=== PATIENT | female | born 2000 | race Two or more races ===

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

== ENCOUNTER 2022-09-07 09:42 | Emergency (ER) | payer OTHER ==
[~2022-09-07] VITALS: Ht 165.1 cm; Wt 81.6 kg
== END 2022-09-07 17:14 | disposition home or self-care (01) ==
LOC: EMR PED 09:42
DX: R10.9 Unspecified abdominal pain (principal); M54.9 Dorsalgia, unspecified; H10.30 Unspecified acute conjunctivitis, unspecified eye; Z88.0 Allergy status to penicillin; Z88.6 Allergy status to analgesic agent; N83.8 Other noninflammatory disorders of ovary, fallopian tube and broad ligament

== ENCOUNTER 2023-03-07 13:20 | Emergency (ER) | payer OTHER ==
[~2023-03-07] VITALS: Ht 165.1 cm; Wt 90.7 kg
[2023-03-07] MEDS ORDERED: CORTISONE60 GM TOP (16:00)
[2023-03-07] MEDS ORDERED: CLEOCIN HCL300 MG PO (16:00)
== END 2023-03-07 16:04 | disposition home or self-care (01) ==
LOC: ER 13:20
DX: L73.8 Other specified follicular disorders (principal); Z88.0 Allergy status to penicillin; Z88.6 Allergy status to analgesic agent

== ENCOUNTER 2023-06-22 10:00 | Emergency (ER) | payer OTHER ==
[~2023-06-22] VITALS: Ht 165.1 cm; Wt 86.2 kg
[~2023-06-22 10:00] MED LIST: CLEOCIN HCL300 MG PO; CORTISONE60 GM TOP
[2023-06-22 12:06] LABS: HEMATOCRIT 36.7 % (36.0-45.00); HEMOGLOBIN 12.5 g/dL (12.0-15.00); MEAN CELL VOLUME 79.3 fL (80.00-100.00); PLATELET COUNT 293 K/uL (150-450); RED BLOOD COUNT 4.63 M/uL (4.00-6.00); RED CELL DISTRIBUTION WIDTH 14.9 % (11.5-14.5)
[2023-06-22 12:37] LABS: CALCIUM 9.2 mg/dL (8.5-10.1); CREATININE SERUM 0.73 mg/dL (0.55-1.02); GFR 100.64; POTASSIUM 3.75 mEq/L (3.5-5.1)
[2023-06-22 13:55] LABS: PH,URINE 5.5 (5.0-8.0); URINE APPEARANCE Clear; URINE BILIRRUBIN Negative (NEGATIVE); URINE BLOOD Negative; URINE COLOR Yellow; URINE GLUCOSE Negative (NEGATIVE); URINE LEUKOCYTE Negative; URINE NITRATE Negative; URINE PROTEIN Negative (NEGATIVE); URINE UROBILINOGEN 0.2 E.U./dl
[2023-06-22 14:02] LABS: URINE EPITHELIAL CELLS 22.4 uL (0.0-38.8); URINE RBC 9.3 uL (0.0-20.8); URINE WBC 5.5 uL (0.0-23.2)
== END 2023-06-22 15:31 | disposition home or self-care (01) ==
LOC: ER 10:01
PROVIDERS: General Practice
DX: N39.0 Urinary tract infection, site not specified (principal); R11.10 Vomiting, unspecified; Z88.0 Allergy status to penicillin; Z88.6 Allergy status to analgesic agent; Z20.822 Contact with and (suspected) exposure to COVID-19

== ENCOUNTER 2023-10-15 14:25 | Emergency (ER) | payer OTHER ==
[~2023-10-15] VITALS: Ht 165.1 cm; Wt 86.2 kg
== END 2023-10-15 18:10 | disposition home or self-care (01) ==
LOC: ER 14:25
DX: S90.02XA Contusion of left ankle, initial encounter (principal); S80.02XA Contusion of left knee, initial encounter; V00.131A Fall from skateboard, initial encounter; Y93.89 Activity, other specified; Y92.89 Other specified places as the place of occurrence of the external cause; Y99.9 Unspecified external cause status; Z88.6 Allergy status to analgesic agent; Z88.0 Allergy status to penicillin

== ENCOUNTER 2024-04-02 20:33 | Emergency (ER) | payer OTHER ==
[~2024-04-02] VITALS: Ht 165.1 cm; Wt 88.5 kg
[2024-04-02] MEDS ORDERED: METHYLPREDNISOLONE SOD SUCC 125 MG VIAL IV ONE (22:15)
[2024-04-02] MEDS ORDERED: ORPHENADRINE CITRATE 30 MG/ML AMPUL IM ONE (22:15)
[2024-04-02 23:08] LABS: HEMATOCRIT 38.5 % (36.0-45.00); HEMOGLOBIN 12.8 g/dL (12.0-15.00); MEAN CELL VOLUME 81.2 fL (80.00-100.00); MEAN CORPUSCULAR HEMOGLOBIN 26.9 pg (27.00-32.0); MEAN CORPUSCULAR HGB CONC 33.2 g/dl (32.0-36.0); PLATELET COUNT 328 K/uL (150-450); RED BLOOD COUNT 4.74 M/uL (4.00-6.00); RED CELL DISTRIBUTION WIDTH 14.6 % (11.5-14.5)
[2024-04-02 23:31] LABS: ALBUMIN 3.9 gm/dL (3.4-5.0); BILIRUBIN TOTAL 0.19 mg/dL (0.3-1.2); CALCIUM 9.7 mg/dL (8.5-10.1); CREATININE SERUM 0.75 mg/dL (0.55-1.02); GFR 96.63; GLOBULINA 4.5 G/DL (2.4-3.5); POTASSIUM 3.76 mEq/L (3.5-5.1); TOTAL PROTEIN 8.4 gm/dL (6.4-8.2)
[2024-04-02 23:58] LABS: PH,URINE 6.5 (5.0-8.0); URINE APPEARANCE Turbid; URINE BILIRRUBIN Negative (NEGATIVE); URINE BLOOD Large; URINE COLOR Yellow; URINE GLUCOSE Negative (NEGATIVE); URINE KETONE Trace (NEGATIVE); URINE LEUKOCYTE Large; URINE NITRATE Negative
[2024-04-03 00:03] LABS: URINE BACTERIA 2116.7 uL (0.0-1933); URINE CAST 0.15 uL (0.0-1.40); URINE EPITHELIAL CELLS 12.3 uL (0.0-38.8); URINE PROTEIN 100 (NEGATIVE); URINE RBC 3063.9 uL (0.0-20.8); URINE WBC > 5548.3 uL (0.0-23.2)
[2024-04-03] MEDS ORDERED: CIPRO500 MG PO (00:08)
[2024-04-03] MEDS ORDERED: CIPROFLOXACIN IN 5 % DEXTROSE 400 MG/200 ML PIGGYBAG IV ONE (00:15)
== END 2024-04-03 02:07 | disposition home or self-care (01) ==
LOC: ER 20:34
PROVIDERS: General Practice
DX: N39.0 Urinary tract infection, site not specified (principal); Z88.6 Allergy status to analgesic agent; Z88.0 Allergy status to penicillin